=== PATIENT | male | born 1980 | race Two or more races ===

== ENCOUNTER 2021-05-31 22:19 | Emergency (ER) | payer OTHER ==
[~2021-05-31] VITALS: Ht 170.2 cm; Wt 75.0 kg
--- NOTE | 2021-05-31 22:24 | PHYS DOC ---
Past History Past Medical History: Constipation General Adult HPI: HPI: ".. I ve been having chest pain ever since about 1:00,,,,I run every day.. I don't think it is stomach or bad or spice food... 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 who presents with above hx and complaints chest pain. Pain has been somewhat constant since 1300 hrs. Patient localizes pain in the epigastric central chest and/or upper abdomen. No history of tarry stools. No history of travel. No history of trauma. No history of significant ill contacts. Up-to-date vaccinations. Including Covid vaccinati ons and this past year. Patient states he takes in very good physical health for PT. No recent travel. Patient has had no cardiac history. No history of trauma. There is family history of diabetes. No history of trauma. Completed Moderna x 2 in January. Follows at [facility]. Review of Systems: Review of Systems: Constitutional: Denies fever or chills Eyes: Denies change in visual acuity HENT: Denies nasal congestion or sore throat Respiratory: Denies cough or shortness of breath Cardiovascular: Complains of chest pain GI: Complains of epigastric pain : Denies dysuria Musculoskeletal: Denies back pain or joint pain Integument: Denies rash Neurologic: Denies headache, focal weakness or sensory changes Endocrine: Denies polyuria or polydipsia Lymphatic: Denies swollen glands Psychiatric: Denies depression or anxiety Family History: Family History: Noncontributory to presentation other than there is family history of diabetes Current Medications: Current Meds: See nursing for home meds Allergies: Allergies: No known drug allergies Physical Exam: PE: Constitutional: Well developed, well nourished, no acute distress, non-toxic appearance. [] HENT: Normocephalic, atraumatic, bilateral external ears normal, oropharynx moist, no oral exudates, nose normal. [] Eyes: PERRLA, EOMI, conjunctiva normal, no discharge. [] Neck: Normal range of motion, no tenderness, supple, no stridor. [] Cardiovascular: Bradycardia heart rate regular rhythm, no murmur [] Lungs & Thorax: Bilateral breath sounds equal apex on auscultation [] Abdomen: Bowel sounds normal, soft, no tenderness, no masses, no pulsatile masses. [] Skin: Warm, dry, no erythema, no rash. [] Back: No tenderness, no CVA tenderness. [] Extremities: No tenderness, no cyanosis, no clubbing, ROM intact, no edema. No cording appreciated. Neurologic: Alert and oriented X 3, normal motor function, normal sensory function, no focal deficits noted. [] Psychologic: Affect normal, judgement normal, mood normal. [] EKG: EKG: My interpretation EKG #1 shows a sinus bradycardia at rate of 56 bpm, with some mild leftward axis and a right bundle branch block findings. No findings acute STEMI with contralateral changes. Time of EKG is 2238. My interpretation EKG G #2 shows sinus bradycardia at 54 bpm [] slight sinus irregularity. Mild leftward axis left bundle branch block. No acute morphology change from prior EKG on file. No findings acute STEMI of contralateral changes. Time of this EKG is 56 minutes. Radiology/Procedures: Radiology/Procedures: [][place] [address] IMAGING REPORT Signed PATIENT: ALVARADO FIELDS ACCOUNT: [id number] : 1980 LOCATION: ER AGE: 40 SEX: M EXAM STATUS: REG ER ORD. PHYSICIAN: GLENYS EUBANKS MD REASON: PAIN. HX RIGHT INGUINAL HERNIA REPAIR PROCEDURE: ACUTE ABDOMEN SERIES XR ABDOMEN COMP ACUTE History: Reason: PAIN. HX RIGHT INGUINAL HERNIA REPAIR / Spl. Instructions: / History: Technique: Supine and upright views of the abdomen. Comparison: None. Findings: No consolidation or pleural effusion. No pneumothorax. No pneumoperitoneum. Mild small bowel gas. No significant air-fluid levels. Air and stool throughout the colon. Moderate colonic stool burden. Postop changes overlying the pelvis related to hernia repair. Impression: 1. Nonobstructed bowel gas pattern. 2. Moderate colonic stool burden. Electronically signed by: Robby Green DO (06/01/2021 12:09 AM) [facility] DICTATED AND SIGNED BY: ROBBY GREEN DO DATE: 06/01/21 0008 CC: YAMILEX CASTLE; GLENYS EUBANKS MD ~MTH0 0 Heart Score: C/O Chest Pain: Yes HEART Score for Chest Pain: HEART Score for Chest Pain Response (Comments) Value History Slighlty/Non-Suspicious 0 ECG Normal 0 Age < 45 0 Risk Factors No Risk Factors 0 Troponin < Normal Limit 0 Total 0 Risk Factors: Risk Factors: DM, Current or recent (<one month) smoker, HTN, HLP, family history of CAD, obesity. Risk Scores: Score 0 - 3: 2.5% MACE over next 6 weeks - Discharge Home Score 4 - 6: 20.3% MACE over next 6 weeks - Admit for Clinical Observation Score 7 - 10: 72.7% MACE over next 6 weeks - Early Invasive Strategies Course & Med Decision Making: Course & Med Decision Making Pertinent Labs and Imaging studies reviewed. (See chart for details) Patient consider taking a daily aspirin. Patient follow-up primary care. Can consider outpatient stress testing. Follow-up Nichole. Return if any concerns. Patient take Pepcid 20 mg twice a day. Clear fluid diet for the next 24 to 48 hours. Based on history and negative troponin , negative D-dimer, findings with stable EKG findings on two separate evaluations. Suspect this is primary. Gastric gastritis. Overall morphology of EKG is relatively nonconcerning in spite of bradycardia and some bundle branch block morphology.. Patient reportedly extremely good health and runs every day several miles. Patient did eat a spicy meal earlier today. Suspect this is not cardiac related. However would consider outpatient stress testing. Return if any concerns. Follow-up with Nichole.\\\\ Impression: 1. Epigastric pain-suspect gastritis 2. Chest pain- 3. Constipation [] Dragon Disclaimer: Dragon Disclaimer: This electronic medical record was generated, in whole or in part, using a voice recognition dictation system. Departure Departure: Referrals: YAMILEX CASTLE (PCP) Scripts Famotidine (PEPCID) 20 Mg Tablet 1 TAB PO BID for gastritis, #60 TAB 3 Refills Prov: GLENYS EUBANKS MD 06/01/21 Feliz Disclaimer This chart was dictated in whole or in part using Voice Recognition software in a busy, high-work load, and often noisy Emergency Department environment. It may contain unintended and wholly unrecognized errors or omissions. Dragon Disclaimer This chart was dictated in whole or in part using Voice Recognition software in a busy, high-work load, and often noisy Emergency Department environment. It may contain unintended and wholly unrecognized errors or omissions. LGENYS EUBANKS MD May 31, 2021 22:24
[2021-05-31] MEDS ORDERED: MAGNESIUM HYDROXIDE 2,400 MG/30 ML ORAL.SUSP. PO ONE (23:00)
[2021-05-31] MEDS ORDERED: IV RINGERS SOLUTION,LACTATED 1,000 ML IV SCH (23:00)
[2021-05-31] MEDS ORDERED: FAMOTIDINE 20 MG/2 ML VIAL IVP ONE (23:00)
--- NOTE | 2021-05-31 23:17 | EKG ---
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
[2021-05-31 23:21] LABS: BASO # 0.1 x10^3/uL (0.0-0.2); BASO % 1 % (0-3); EOS # 0.1 x10^3/uL (0.0-0.7); EOS % 2 % (0-3); HEMATOCRIT 41.8 % (39.0-53.0); HEMOGLOBIN 14.5 g/dL (13.0-17.5); LYMPH # 4.1 x10^3/uL (1.0-4.8); LYMPH % 47 % (24-48); MEAN CORPUSCULAR HEMOGLOBIN 30 pg (25-35); MEAN CORPUSCULAR HGB CONC 35 g/dL (31-37); MEAN CORPUSCULAR VOLUME 86 fL (79-100); MONO # 0.7 x10^3/uL (0.0-1.1); MONO % 8 % (0-9); NEUT # 3.7 x10^3uL (1.8-7.7); NEUT % 43 % (31-73); PLATELET COUNT 213 x10^3/uL (140-400); RED BLOOD COUNT 4.84 x10^6/uL (4.30-5.70); RED CELL DISTRIBUTION WIDTH 13.2 % (11.5-14.5); WHITE BLOOD COUNT 8.7 x10^3/uL (4.0-11.0)
[2021-05-31 23:29] LABS: CALCIUM 9.6 mg/dL (8.5-10.1); CREATININE 1.1 mg/dL (0.7-1.3); GFR 73.8; POTASSIUM 4.2 mmol/L (3.5-5.1)
[2021-05-31 23:42] LABS: ALBUMIN 4.5 g/dL (3.4-5.0); DIRECT BILIRUBIN 0.1 mg/dL (0.0-0.2); MAGNESIUM 2.1 mg/dL (1.8-2.4); TOTAL BILIRUBIN 0.6 mg/dL (0.2-1.0); TOTAL PROTEIN 7.3 g/dL (6.4-8.2)
--- NOTE | 2021-06-01 00:11 | RAD ---
XR ABDOMEN COMP ACUTE History: Reason: PAIN. HX RIGHT INGUINAL HERNIA REPAIR / Spl. Instructions: / History: Technique: Supine and upright views of the abdomen. Comparison: None. Findings: No consolidation or pleural effusion. No pneumothorax. No pneumoperitoneum. Mild small bowel gas. No significant air-fluid levels. Air and stool throughout the colon. Moderate colonic stool burden. Post op changes overlying the pelvis related to hernia repair. Impression: 1. Nonobstructed bowel gas pattern. 2. Moderate colonic stool burden. Electronically signed by: Robby Green DO (06/01/2021 12:09 AM) [facility]
[2021-06-01 01:39] LABS: BACTERIA,URINE 0 /HPF (0-FEW); BILIRUBIN,URINE NEG (NEG); CLARITY,URINE CLEAR; COLOR,URINE COLORLESS; GLUCOSE,URINE NEG (NEG); NITRITE,URINE NEG (NEG); RBC,URINE RARE /HPF (0-2); UROBILINOGEN,URINE 0.2 mg/dL (0.2 mg/dL); WBC,URINE 0 /HPF (0-4)
[2021-06-01 01:43] LABS: BARBITURATES NEG (NEG); BENZODIAZEPINES NEG (NEG); CANNABINOIDS NEG (NEG); COCAINE NEG (NEG); METHADONE NEG (NEG); OPIATES NEG (NEG); PHENCYCLIDINE NEG (NEG)
[2021-06-01 01:51] LABS: AMPHETAMINE/METHAMPHETAMINE NEG (NEG)
[2021-06-01 02:15] VITALS: BP 113/69
[2021-06-01] MEDS ORDERED: KETOROLAC 30 MG/ML VIAL. IVP ONE (02:15)
[2021-06-01] MEDS ORDERED: FAMO-63 PO (02:18)
--- NOTE | 2021-06-01 07:57 | EKG ---
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
== END 2021-06-01 02:40 | disposition home or self-care (01) ==
LOC: ER 22:19
DX: R07.89 Other chest pain (principal); K59.00 Constipation, unspecified
CPT/HCPCS: 36415; 74022; 80048; 80076; 80307; 81001; 82150; 82550; 83690; 83735; 83880; 84443; 84484; 85025; 85379; 85610; 85730; 93005; 96361; 96374; 96375; 99285; G0480; J1885; J3490; J7120